=== PATIENT | female | born 1960 | race Caucasian/White ===

== ENCOUNTER 2016-08-06 10:30 | Emergency (ER) | payer MEDICAID ==
[~2016-08-06] VITALS: Ht 157.5 cm; Wt 52.0 kg
[2016-08-06] MEDS ORDERED: TRAZADONE (10:49)
[2016-08-06] MEDS ORDERED: OLAN20TA16 PO (10:49)
[2016-08-06] MEDS ORDERED: LEVO750T46 PO (10:49)
[2016-08-06] MEDS ORDERED: BUPROPION (10:49)
[2016-08-06] MEDS ORDERED: GABA-531 PO (10:49)
[2016-08-06] MEDS ORDERED: ATOR20TA65 PO (10:49)
[2016-08-06] MEDS ORDERED: ONDANSETRON HCL 4MG/2ML VIAL IV ONE (11:15)
[2016-08-06] MEDS ORDERED: ASPIRIN 325MG EC TABLET PO ONE (11:15)
[2016-08-06 11:42] LABS: HEMATOCRIT. 39.6 % (36.0-48.0); HEMOGLOBIN. 13.2 g/dL (12.0-16.0); MEAN CORPUSCULAR HEMOGLOBIN 31.1 pg (28.0-32.0); MEAN CORPUSCULAR HGB CONC 33.3 g/dL (31.0-37.0); MEAN CORPUSCULAR VOLUME 93.6 fL (81.0-99.0); PLATELET 401 x1000/uL (130-400); RED BLOOD CELL COUNT 4.23 mill/uL (4.2-5.4); RED CELL DISTRIBUTION WIDTH 13.5 % (11.6-14.6); WHITE BLOOD COUNT 15.2 x1000/uL (4.5-11.0)
[2016-08-06 11:50] LABS: PARTIAL THROMBOPLASTIN TIME 30.2 sec (24.0-34.0); PROTHROMBIN TIME 10.1 sec
[2016-08-06 11:50] LABS: CLARITY URINE CLEAR (CLEAR); COLOR URINE YELLOW (YELLOW); GLUCOSE URINE NEGATIVE (NEGATIVE); KETONES URINE NEGATIVE (NEGATIVE); LEUKOCYTE ESTERASE URINE NEGATIVE (NEGATIVE); NITRITE URINE NEGATIVE (NEGATIVE); OCCULT BLOOD URINE NEGATIVE (NEGATIVE); PROTEIN URINE NEGATIVE (NEGATIVE); SPECIFIC GRAVITY URINE 1.032 (1.005-1.030)
[2016-08-06 11:52] LABS: DIFFERENTIAL COMMENT 1
[2016-08-06 11:54] LABS: ALANINE AMINOTRANSFERASE 23 IU/L (13-61); ALBUMIN 3.3 g/dL (3.4-5.0); ANION GAP 12; CALCIUM 8.2 mg/dL (8.5-10.1); CARBON DIOXIDE 26 mEq/L (21-32); CHLORIDE 105 mEq/L (98-107); INDEX HEMOLYSI 1 (1-3); INDEX ICTERIC 1 (1-4); INDEX LIPEMIC 1 (1-3); LIPASE 149 IU/L (73-393); UREA NITROGEN BLOOD 19 mg/dL (7-21); eGFR > 60 mL/min (>60)
[2016-08-06 11:58] LABS: TROPONIN I < 0.02 ng/mL (0.00-0.04)
[2016-08-06 12:17] LABS: PLATELET ESTIMATE SLIGHTLY INCREASED
[2016-08-06 12:36] VITALS: BP 112/67
[2016-08-06 12:48] LABS: *AMPHETAMINES SCREEN URINE NEGATIVE (NEGATIVE); *BARBITURATES SCREEN URINE NEGATIVE (NEGATIVE); *BENZODIAZEPINES SCREEN URINE NEGATIVE (NEGATIVE); *COCAINE SCREEN URINE NEGATIVE (NEGATIVE); CANNABINOID URINE SCREEN NEGATIVE (NEGATIVE); ECSTASY MDMA SCREEN URINE CONF.TEST INDICATED (NEGATIVE); METHADONE URINE SCREEN NEGATIVE (NEGATIVE); OPIATES URINE SCREEN PRESUMTIVE POSITIVE (NEGATIVE); PHENCYCLIDINE URINE SCREEN NEGATIVE (NEGATIVE)
== END 2016-08-06 14:10 | disposition home or self-care (01) ==
LOC: ER 10:31
DX: J01.90 Acute sinusitis, unspecified (principal); F17.210 Nicotine dependence, cigarettes, uncomplicated; E78.00 Pure hypercholesterolemia, unspecified; F99 Mental disorder, not otherwise specified; F41.9 Anxiety disorder, unspecified; F32.9 Major depressive disorder, single episode, unspecified; R00.0 Tachycardia, unspecified; K76.0 Fatty (change of) liver, not elsewhere classified; Z88.3 Allergy status to other anti-infective agents; Z88.2 Allergy status to sulfonamides; Z90.49 Acquired absence of other specified parts of digestive tract
CPT/HCPCS: 36415; 71010; 76705; 80053; 80305; 81003; 83690; 84484; 85025; 85610; 85730; 93005; 96374; 99285; J2405; Z7610